=== PATIENT | male | born 2000 | race Caucasian/White ===

== ENCOUNTER 2025-01-16 12:14 | Emergency (ER) | payer OTHER, SELFPAY ==
[2025-01-16 12:15] VITALS: BP 151/96
--- NOTE | 2025-01-16 12:41 | ED.GENMED ---
History of Present Illness
General
Chief Complaint: BURN-MINOR
Source: patient
Time Seen by Provider: 01/16/25 12:27
History of Present Illness
History of Present Illness:
24-year-old male presents to the emergency room for evaluation after being 'electrocuted'. 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 He was distracted in the middle of his routine and inadvertently forgot to cut off the electrical
supply to the area he was working on. When he touched the copper wires he felt an electrical surge through his arms. He was able to leave go quickly. No syncope. No chest pain. He did not fall from the ladder. Currently he feels back to
baseline. He denies any significant medical history. Patient states the circuit was a 277 bolt circuit.
Phy Exam
Physical Exam
Physical Exam:
General: Awake, Alert, Oriented X3. No acute distress.
Vitals: unremarkable
Head: Atraumatic
Eyes: Pupils equal, EOMI
Throat: Airway intact, no exudates
Neck: Trachea midline
Lungs: Clear and equal b/l
Heart: Regular rate, no murmurs
Abd: Soft, Nontender, No pulsatile mass
Neuro: Nonfocal
Skin: Warm, dry, no rash
Extremities: pulses equal b/l, no edema, no borja or contact points noted
Course
Orders/Labs/Results
Orders:
Orders
01/16/25 12:18
Electrocardiogram (*1) Urgent
Reason for Study: Other
Other Reason for Exam: electric shock
EKG- Treatment ONCE
01/16/25 13:06
CPK [Creatine Phosphokinase] Urgent
Comprehensive Metabolic Panel Urgent
01/16/25 13:07
Complete Blood Count/With Diff Urgent
Troponin I Urgent
Abnormal Lab Results
01/16/25
13:07
MPV 12.1 H fL
(7.4-10.4)
Abs Immat Gran (auto) 0.1 H 10^3/uL
(0-0.05)
Absolute Monos (auto) 0.8 H 10^3/uL
(0.1-0.6)
Immature Gran % 0.6 H %
(0-0.5)
Lymphocytes % 18.9 L %
(20.5-51.1)
01/16/25 13:07
01/16/25 13:06
Vital Signs
Initial and Last Documented VS:
Initial Vital Signs
Pulse Resp BP Pulse Ox
71 18 151/96 100
01/16/25 12:15 01/16/25 12:15 01/16/25 12:15 01/16/25 12:15
Last Documented Vital Signs
Temp Pulse Resp BP Pulse Ox
97.8 F 70 18 115/79 99
01/16/25 13:00 01/16/25 14:30 01/16/25 14:30 01/16/25 14:00 01/16/25 14:38
MDM/Problems Addressed
Differential Diagnosis Includes:
Significant electrocution, low voltage electrocution, cardiac dysrhythmia
MDM/Problems Addressed:
Patient presents after having a relatively low level electrocution with less than 600 V. Patient did not have loss of consciousness. He has no significant symptoms. He was observed for a period of time here in the emergency room. No cardiac
dysrhythmia noted CPK is normal. No borja or lesions to suggest a entry and exit point. Patient stable for discharge home
*Pulse Oximetry
SaO2: 100
Oxygen Mode of Delivery: Room air
Patient hypoxic: no
*EKG
Interpreted by ED Provider?: Yes
Heart Rate: 70
Rate: normal
Rhythm: sinus
[place]: normal axis
Interval: normal interval
QRS Pattern: normal QRS
Ischemia: no ischemia
*Fruit Grading Supervisor Interpretation
Rate: normal
Interpretation: normal
Heart Rate: 70
Rhythm: sinus
*Critical Care Note
Total Time (30-74mins, 75-104mins- exclusive of procedures): Not Applicable
ED Attending Note
-
Portions of this chart may have been created with voice recognition software.� Occasional wrong word or��sound alike� substitutions may have occurred due to the inherent limitations of voice recognition software.
Discharge Plan
Departure
Patient Disposition: Home (Routine Discharge)
Date of Disposition: 01/16/25
Time of Disposition: 14:31
Patient with high blood pressure during this ER visit?: Yes
Condition: Good
Discharge Problem:
Electrical injury in adult
Instructions: Electrical Shock (DC), BLOOD PRESSURE
Referrals:
NONE,* [Family Provider, Internal Medicine]
Activity Restrictions/Additional Instructions:
The electric current you were exposed to is considered a low level exposure fortunately. Your labs are unremarkable here. Your EKG is normal. No heart rhythm abnormalities were noted on the monitor. You are certainly safe to be discharged home.
Resume activity as tolerated. Your blood pressure was noted to be high here in the emergency room. Sometimes patients have high blood pressure here in the emergency room and it settles down at home so follow your primary care doctor for further
blood pressure measurements.
Interventions
Interventions:
*Risk Screen - Suicide Last Done: 01/16/25 12:51
*General Assessment Last Done: 01/16/25 12:51
*Neglect/Abuse Screening Last Done: 01/16/25 12:51
*ED- Fall Risk Assessment Last Done: 01/16/25 14:39
*Nursing Disposition Last Done: 01/16/25 14:39
ED-Skin Assessment Last Done: 01/16/25 12:52
Discharge Date and Time
Discharge Date/Time: 01/16/25 14:39
Print Language: MONGOLIAN
[2025-01-16 13:08] VITALS: BP 121/76
[2025-01-16 13:17] LABS: Hematocrit 47.6 % (39.0-52.0); Hemoglobin 15.7 g/dL (13.0-18.0); Mean Corp Hgb Conc. 33.0 g/dL (33.0-37.0); Mean Corpuscular Volume 89.8 fL (80.0-94.0); Nucleated Red Blood Cells % 0 % (-); Platelet Count 194 10^3/uL (130-400); Red Cell Dist. Width 12.6 % (11.5-14.5)
[2025-01-16 13:45] LABS: Troponin I < 0.012 ng/ml
[2025-01-16 13:51] LABS: ALT (SGPT) 28 U/L (0-50); AST (SGOT) 25 U/L (17-59); Albumin 4.9 g/dl (3.5-5.0); Alkaline Phosphatase 89 U/L (38-126); Blood Urea Nitrogen 14 mg/dl (9-20); Calcium 9.6 mg/dl (8.4-10.2); Carbon Dioxide 30 mmol/L (22-30); Chloride 103 mmol/L (98-107); Glucose 92 mg/dl (70-99); Potassium 4.5 mmol/L (3.5-5.1); Sodium 141 mmol/L (135-145); Total Protein 7.9 g/dl (6.3-8.2); eGFR > 60.00
[2025-01-16 14:00] VITALS: BP 115/79
== END 2025-01-16 14:39 | disposition home or self-care (01) ==
LOC: EMR 12:14
PROVIDERS: EMERGENCY PHYSICIAN Emergency Medicine
DX: T75.4XXA Electrocution, initial encounter (principal); W86.8XXA Exposure to other electric current, initial encounter; Y99.0 Civilian activity done for income or pay
CPT/HCPCS: 99284; 80053; 82550; 84484; 85025; 93005